=== PATIENT | female | born 1945 | race Caucasian/White ===

== ENCOUNTER 2018-10-16 21:41 | Emergency (ER) | payer MEDICARE ==
[~2018-10-16] VITALS: Ht 165.1 cm; Wt 63.4 kg
[~2018-10-16 21:41] MED LIST: CELE200C PO; DOCU-131 PO; ENOX30SY4 SQ; HYDR-3237 PO; NONE PER PT
[2018-10-16 22:12] VITALS: BP 106/64
--- NOTE | 2018-10-16 22:13 | NUR ---
FIRST CONTACT WITH PT. PT HAD CAT BITE TO TO RIGHT LOWER ARM AND NOW WITH RED STREAKS RUNNING UP ARM. PT'S AOX4. RESPS EVEN AND UNLABORED. BP/SPO2 MONITORS IN PLACE. CALL LIGHT WITHIN REACH.
[2018-10-16 22:31] LABS: BASOPHILS # (AUTO) 0.01 x10^3/uL (0-0.1); BASOPHILS % (AUTO) 0 % (0-1); EOSINOPHILS # (AUTO) 0.23 x10^3/uL (0-0.4); EOSINOPHILS % (AUTO) 2 % (1-7); LYMPHOCYTES # (AUTO) 1.51 x10^3/uL (1-3.4); LYMPHOCYTES % (AUTO) 14 % (22-44); MD NO; MEAN CORPUSCULAR HEMOGLOBIN 32.1 pg (27.0-34.8); MEAN CORPUSCULAR HGB CONC 33.1 g/dL (32.4-35.8); MEAN CORPUSCULAR VOLUME 96.9 fL (80-100); MEAN PLATELET VOLUME 9.4 fL (7.4-10.4); MONOCYTES # (AUTO) 1.27 x10^3/uL (0.2-0.8); MONOCYTES % (AUTO) 12 % (2-9); NEUTROPHILS # (AUTO) 7.68 x10^3/uL (1.8-6.8); NEUTROPHILS % (AUTO) 72 % (42-75); PLATELET COUNT 138 x10^3/uL (130-400); RED BLOOD COUNT 3.74 x10^6/uL (3.82-5.3); RED CELL DISTRIBUTION WIDTH 13.4 % (9.6-15.2)
[2018-10-16 22:34] LABS: ANION GAP 5 mmol/L (5-15); CALCIUM 9.4 mg/dL (8.5-10.1); CHLORIDE 110 mmol/L (98-107); CREATININE 0.83 mg/dL (0.55-1.02)
--- NOTE | 2018-10-16 23:35 | NUR ---
Patient given discharge instructions and they have confirmed that they understand the instructions. Patient ambulatory with steady gait.
== END 2018-10-16 23:36 | disposition home or self-care (01) ==
LOC: ED 22:12
DX: S51.851A Open bite of right forearm, initial encounter (principal); S61.551A Open bite of right wrist, initial encounter; S61.451A Open bite of right hand, initial encounter; L03.113 Cellulitis of right upper limb; W55.01XA Bitten by cat, initial encounter; Y93.89 Activity, other specified; Y92.89 Other specified places as the place of occurrence of the external cause; Y99.8 Other external cause status
CPT/HCPCS: 36415; 80048; 85025; 99283

== ENCOUNTER 2019-03-19 21:15 | Emergency (ER) | payer MEDICARE ==
[~2019-03-19] VITALS: Ht 165.1 cm; Wt 65.8 kg
[2019-03-19] MEDS ORDERED: SODIUM CHLORIDE FLUSH 10ML SYR IVF ONE (22:00)
[2019-03-19] MEDS ORDERED: SODIUM CHLORIDE 0.9% 1,000ML IVBOLUS ONE (22:00)
[2019-03-19 22:09] LABS: MEAN CORPUSCULAR HEMOGLOBIN 31.8 pg (27.0-34.8); MEAN CORPUSCULAR HGB CONC 33.7 g/dL (32.4-35.8); MEAN CORPUSCULAR VOLUME 94.4 fL (80-100); MEAN PLATELET VOLUME 9.5 fL (7.4-10.4); PLATELET COUNT 146 x10^3/uL (130-400); RED BLOOD COUNT 3.85 x10^6/uL (3.82-5.3); RED CELL DISTRIBUTION WIDTH 12.5 % (9.6-15.2)
[2019-03-19 22:15] LABS: ALANINE AMINOTRANSFERASE 27 U/L (12-78); ALBUMIN 3.5 g/dL (3.4-5.0); ANION GAP 4 mmol/L (5-15); CALCIUM 8.7 mg/dL (8.5-10.1); CHLORIDE 112 mmol/L (98-107); CREATININE 0.78 mg/dL (0.55-1.02)
[2019-03-19 22:20] LABS: ALKALINE PHOSPHATASE 102 U/L (45-117); BILIRUBIN,TOTAL 0.3 mg/dL (0.2-1.0); T4 (THYROXINE) 7.6 mcg/dL (4.8-13.9); TROPONIN I < 0.015 ng/mL (0.000-0.045)
[2019-03-19 22:27] LABS: BASOPHILS # (AUTO) 0.01 x10^3/uL (0-0.1); BASOPHILS % (AUTO) 0 % (0-1); EOSINOPHILS # (AUTO) 0.22 x10^3/uL (0-0.4); EOSINOPHILS % (AUTO) 4 % (1-7); LYMPHOCYTES # (AUTO) 1.47 x10^3/uL (1-3.4); LYMPHOCYTES % (AUTO) 29 % (22-44); MD SCAN; MONOCYTES # (AUTO) 0.65 x10^3/uL (0.2-0.8); MONOCYTES % (AUTO) 13 % (2-9); NEUTROPHILS # (AUTO) 2.77 x10^3/uL (1.8-6.8); NEUTROPHILS % (AUTO) 54 % (42-75)
[2019-03-19 22:50] VITALS: BP 136/80
--- NOTE | 2019-03-19 22:52 | NUR ---
PT ASSISTED TO BR, UA COLLECTED, SENT TO LAB. PT BACK TO ROOM STEADY GAIT, DENIES DIZZINESS. MONITOR IN PLACE.
[2019-03-19 23:09] LABS: MICROSCOPIC AUTO
[2019-03-19 23:10] LABS: CULTURE INDICATED? YES
== END 2019-03-20 00:56 | disposition home or self-care (01) ==
LOC: ED 03-20 00:05
DX: M79.661 Pain in right lower leg (principal); R42 Dizziness and giddiness; E86.0 Dehydration; Z90.10 Acquired absence of unspecified breast and nipple
CPT/HCPCS: 36415; 70450; 80053; 81001; 84436; 84443; 84484; 85025; 87086; 93005; 93971; 96360; 99284; J7030